=== PATIENT | female | born 2000 | race Caucasian/White ===

== ENCOUNTER → 2022-11-18 14:24 | Outpatient (CLI) | payer OTHER, SELFPAY ==
--- NOTE | 2022-11-18 14:29 | DI.US.S_ITS ---
PROCEDURE: US PELVIC COMPLETE INDICATIONS: heavy bleeding TECHNIQUE: Real-time transabdominal scanning was performed of the pelvic organs, with image documentation. COMPARISON: None. FINDINGS: Uterus: Uterus is anteverted and normal in size at 7.2 x 3.3 x 5.0 cm. The myometrium is homogeneous. The endometrium measures 3 mm combined thickness. Ovaries: The right ovary measures 3.4 x 1.9 x 1.9 cm, with a calculated ovarian volume of 6 cc. The left ovary measures 2.6 x 1.4 x 2.1 cm, with a calculated ovarian volume of 4 cc. The ovaries have a normal sonographic appearance. No adnexal masses are seen. Other: No pathologic free abdominal or pelvic fluid. Debris is present in the urinary bladder. IMPRESSION: 1. Debris is present in the urinary bladder, a nonspecific finding that can be seen in the setting of urinary concentration or infection. 2. Otherwise unremarkable transabdominal pelvic ultrasound. We strive to produce accurate, complete, and clear reports of imaging services. To assist us in improving patient care, this report was composed using standard report templates and voice recognition software. Therefore, it may contain abnormal punctuation, insertions and/or omissions. Occasional wrong-word or sound-alike substitutions may occur. Though we review the report and make efforts to correct it, we do recommend that the report be read carefully in proper context to recognize any text inaccuracies. Dictated by: Vidal Wilson M.D. on 11/19/2022 at 10:22 Approved by: Vidal Wilson M.D. on 11/19/2022 at 10:30
== END ==
PROVIDERS: PCP Obstetrics & Gynecology; Referring Provider Obstetrics & Gynecology; Visit Provider Obstetrics & Gynecology
DX: N92.0 Excessive and frequent menstruation with regular cycle (principal)
CPT/HCPCS: 76856